=== PATIENT | male | born 1975 | race Caucasian/White ===

== ENCOUNTER 2017-10-25 01:35 | Emergency (ER) | payer MEDICAID ==
[~2017-10-25] VITALS: Ht 182.9 cm; Wt 100.0 kg
[2017-10-25] MEDS ORDERED: LIDOCAINE HCL 1% 20ML VIAL (Pyxis) INJ MC ONE (02:15)
[2017-10-25] MEDS ORDERED: BACITRACIN ZINC OINT UDPKT TOP ONE (02:15)
[2017-10-25 05:34] VITALS: BP 132/80
== END 2017-10-25 05:38 | disposition home or self-care (01) ==
LOC: ER 01:37
DX: S00.03XA Contusion of scalp, initial encounter (principal); S00.83XA Contusion of other part of head, initial encounter; S10.93XA Contusion of unspecified part of neck, initial encounter; S81.012A Laceration without foreign body, left knee, initial encounter; F17.200 Nicotine dependence, unspecified, uncomplicated; M79.644 Pain in right finger(s); Y04.0XXA Assault by unarmed brawl or fight, initial encounter; W01.110A Fall on same level from slipping, tripping and stumbling with subsequent striking against sharp glass, initial encounter; Y93.89 Activity, other specified; Y92.018 Other place in single-family (private) house as the place of occurrence of the external cause
CPT/HCPCS: 12002; 70450; 73140; 73562; 99284; J3490; Z7610